=== PATIENT | male | born 1940 | race Caucasian/White ===

== ENCOUNTER 2017-04-08 11:42 | Inpatient (IN) | payer OTHER ==
[~2017-04-08] VITALS: Ht 172.7 cm; Wt 100.8 kg
[~2017-04-08 11:42] MED LIST: ADVAIR HFA120 INHALA IH; AMBIEN10 M1 PO; AMBIEN5 M1 PO; ASPIR 8181 M1 PO; ASPIRIN81 M1 PO; ATIVAN1 M1 PO; ATIVAN1 MG PO; Advair HFA 115/21 IH; Ativan PO; BAYER ASPIRIN325 M1 PO; Benadryl PO; Combivent IH; DOXAZOSIN MESYLA1 MG PO; EMS NITROSTAT0.4 M1 SL; Ecotrin PO; HYDROCHLOROTHIA25 MG; HYDROCHLOROTHIA25 MG PO; Hydrodiuril,Oretic,E PO; LIPITOR40 MG PO; LOPRESSOR25 MG PO; Lipitor PO; Lopressor PO; NITROSTAT,NITR0.4 M1 SL; NITROSTAT0.4 MG SL; NIX 5% CREAM60 GM TP; NORVASC10 MG; NORVASC5 M1 PO; NORVASC5 MG PO; Norvasc PO; PLAVIX75 MG PO; PRAVASTATIN SOD40 MG; PRINIVIL40 MG PO; PROZAC; PROzac PO; Plavix PO; Tylenol Regular Stre PO; ZESTRIL,PRINIVI40 MG; ZESTRIL40 MG PO; Zestril,Prinivil PO; Zithromax PO; predniSONE PO
[2017-04-08 12:25] LABS: BASOPHIL COUNT 0.1 K/uL (0-0.1); EOSINOPHIL (%) 2.2 % (0-5); EOSINOPHIL COUNT 0.2 K/uL (0-0.3); HEMATOCRIT 49.3 % (38.0-50.0); IMMATURE GRANULOCYTE (%) 0.3 % (0.0-0.7); INSTRUMENT ABS NEUTROPHIL CT 4.7 K/uL; LYMPHOCYTE COUNT 1.6 K/uL (1.0-2.8); MCH 30.2 PG (29.0-34.0); MCHC 35.3 G/DL (30.0-36.0); MCV 85.6 FL (86-99); MONOCYTE (%) 7.3 % (3-12); MONOCYTE COUNT 0.5 K/uL (0-0.8); NEUTROPHIL (%) 66.8 % (45-76); NEUTROPHIL COUNT 4.7 K/uL (1.8-6.4); PLATELET COUNT 123 K/uL (156-360); RBC DIS.WIDTH-CV 12.6 % (11.8-14.6); RED BLOOD COUNT 5.76 M/uL (4.00-5.50)
[2017-04-08 12:31] LABS: INTER. NORMALIZED RATIO 1.1; PROTHROMBIN TIME 12.4 SEC (10.2-12.9)
[2017-04-08 12:34] LABS: CHLORIDE 106 mEq/L (99-109); POTASSIUM 3.9 mEq/L (3.7-5.4); PTT 33.9 SEC (25-37); SODIUM 141 mEq/L (136-147)
[2017-04-08 12:36] LABS: GLUCOSE 140 mg/dL (70-99)
[2017-04-08 12:38] LABS: ANION GAP 13 MEQ/L (2-14)
[2017-04-08 12:40] LABS: GFR ESTIMATE (CALCULATED) 52 mL/min/
[2017-04-08 12:41] LABS: UREA NITROGEN (BUN) 23 mg/dL (9-23)
[2017-04-08 12:48] LABS: TROP-I INTERPRETATION NEGATIVE; TROPONIN-I 0.03 ng/mL (0.0-0.30)
[2017-04-08] MEDS ORDERED: TRAMADOL HCL50 MG PO (14:43)
[2017-04-08] MEDS ORDERED: VALSARTAN-HCTZ1 EAC3 PO (14:43)
[2017-04-08] MEDS ORDERED: PANTOPRAZOLE SO40 MG PO (14:43)
[2017-04-08] MEDS ORDERED: VENTOLIN HFA18 GM IH (14:44)
[2017-04-08 15:57] VITALS: BP 110/81
[2017-04-08 19:08] LABS: TROP-I INTERPRETATION NEGATIVE; TROPONIN-I 0.04 ng/mL (0.0-0.30)
[2017-04-08 19:28] VITALS: BP 124/76
[2017-04-09 00:10] VITALS: BP 118/69
[2017-04-09 00:49] LABS: TROP-I INTERPRETATION NEGATIVE; TROPONIN-I 0.03 ng/mL (0.0-0.30)
[2017-04-09 03:46] VITALS: BP 115/73
[2017-04-09 07:50] VITALS: BP 125/71
[2017-04-09 10:04] LABS: ANION GAP 11 MEQ/L (2-14); CHLORIDE 105 MEQ/L (99-109); GFR ESTIMATE (CALCULATED) 39 mL/min/; GLUCOSE 140 mg/dL (70-99); POTASSIUM 4.4 MEQ/L (3.7-5.4); SAMPLE HEMOLYSIS CHECK 0; SAMPLE ICTERIC CHECK 0; SAMPLE LIPEMIA CHECK 0; SODIUM 142 MEQ/L (136-147); UREA NITROGEN (BUN) 28 mg/dL (9-23)
[2017-04-09 11:00] VITALS: BP 129/85
[2017-04-09 11:56] LABS: HEMATOCRIT 46.5 % (38.0-50.0); MCV 88.4 FL (86-99); MEAN PLAT.VOLUME 10.9 uM^3 (9.0-12.4); PLATELET COUNT 115 K/uL (156-360); RBC DIS.WIDTH-CV 13.2 % (11.8-14.6); RBC DIS.WIDTH-SD 42.6 % (39-53); RED BLOOD COUNT 5.26 M/uL (4.00-5.50); WHITE BLOOD COUNT 6.7 K/uL (4.1-10.2)
[2017-04-09] MEDS ORDERED: ZESTRIL40 MG PO (12:20)
[2017-04-09 16:12] LABS: ANION GAP 12 MEQ/L (2-14); CHLORIDE 104 MEQ/L (99-109); POTASSIUM 3.7 MEQ/L (3.7-5.4); SAMPLE HEMOLYSIS CHECK 0; SAMPLE ICTERIC CHECK 0; SAMPLE LIPEMIA CHECK 0; SODIUM 141 MEQ/L (136-147)
[2017-04-09 16:17] LABS: GFR ESTIMATE (CALCULATED) 42 mL/min/; GLUCOSE 135 mg/dL (70-99); UREA NITROGEN (BUN) 27 mg/dL (9-23)
[2017-04-09 20:00] VITALS: BP 164/96
[2017-04-10] VITALS (9 sets, daily range): BP systolic 144–206; BP diastolic 80–110
[2017-04-10 06:55] LABS: ANION GAP 12 MEQ/L (2-14); CHLORIDE 105 MEQ/L (99-109); GFR ESTIMATE (CALCULATED) 42 mL/min/; GLUCOSE 140 mg/dL (70-99); POTASSIUM 3.8 MEQ/L (3.7-5.4); SAMPLE HEMOLYSIS CHECK 0; SAMPLE ICTERIC CHECK 0; SAMPLE LIPEMIA CHECK 0; SODIUM 140 MEQ/L (136-147); UREA NITROGEN (BUN) 27 mg/dL (9-23)
[2017-04-10 14:03] LABS: GLOBULINS 2.4 G/DL (2.3-3.5)
[2017-04-10 18:31] LABS: ADD MIUA? YES; BILIRUBIN NEGATIVE; BLOOD NEGATIVE; COLOR YELLOW ((YELLOW)); GLUCOSE (STRIP) NEGATIVE; KETONES NEGATIVE; LEUKOCYTES NEGATIVE; NITRITE NEGATIVE; PROTEIN (STRIP) 100; UROBILINOGEN 0.2 MG/DL (0.2-1.0)
[2017-04-10 18:34] LABS: BACTERIA NONE SEEN /HPF; EPITHELIAL CELLS NONE SEEN /HPF; MUCUS TRACE /LPF; RED BLOOD CELLS 0-5 /HPF (0-5); WHITE BLOOD CELLS 0-5 /HPF (0-5)
[2017-04-10 23:05] LABS: EOSINOPHIL COUNT 0.1 K/uL (0-0.3); HEMATOCRIT 44.9 % (38.0-50.0); IMMATURE GRANULOCYTE (%) 0.4 % (0.0-0.7); INSTRUMENT ABS NEUTROPHIL CT 4.5 K/uL; LYMPHOCYTE COUNT 1.6 K/uL (1.0-2.8); MCH 29.8 PG (29.0-34.0); MCHC 34.7 G/DL (30.0-36.0); MCV 85.7 FL (86-99); MEAN PLAT.VOLUME 10.2 uM^3 (9.0-12.4); MONOCYTE (%) 7.3 % (3-12); MONOCYTE COUNT 0.5 K/uL (0-0.8); NEUTROPHIL (%) 66.9 % (45-76); NEUTROPHIL COUNT 4.5 K/uL (1.8-6.4); PLATELET COUNT 112 K/uL (156-360); RBC DIS.WIDTH-CV 12.9 % (11.8-14.6); RBC DIS.WIDTH-SD 40.2 % (39-53); RED BLOOD COUNT 5.24 M/uL (4.00-5.50); WHITE BLOOD COUNT 6.7 K/uL (4.1-10.2)
[2017-04-10 23:13] LABS: CHLORIDE 109 mEq/L (99-109); POTASSIUM 3.7 mEq/L (3.7-5.4); SODIUM 140 mEq/L (136-147)
[2017-04-10 23:15] LABS: GLUCOSE 139 mg/dL (70-99)
[2017-04-10 23:16] LABS: ANION GAP 11 MEQ/L (2-14)
[2017-04-10 23:19] LABS: GFR ESTIMATE (CALCULATED) 48 mL/min/
[2017-04-10 23:20] LABS: UREA NITROGEN (BUN) 24 mg/dL (9-23)
[2017-04-10 23:27] LABS: TROP-I INTERPRETATION NEGATIVE; TROPONIN-I 0.03 ng/mL (0.0-0.30)
[2017-04-11] VITALS (8 sets, daily range): BP systolic 137–178; BP diastolic 72–104
[2017-04-11 06:56] LABS: HEMATOCRIT 43.1 % (38.0-50.0); MCH 29.7 PG (29.0-34.0); MCHC 34.6 G/DL (30.0-36.0); MCV 85.9 FL (86-99); MEAN PLAT.VOLUME 9.9 uM^3 (9.0-12.4); PLATELET COUNT 113 K/uL (156-360); RBC DIS.WIDTH-CV 13.2 % (11.8-14.6); RBC DIS.WIDTH-SD 40.7 % (39-53); RED BLOOD COUNT 5.02 M/uL (4.00-5.50); WHITE BLOOD COUNT 6.3 K/uL (4.1-10.2)
[2017-04-11 08:09] LABS: ANION GAP 10 MEQ/L (2-14); CHLORIDE 105 MEQ/L (99-109); GFR ESTIMATE (CALCULATED) 42 mL/min/; GLUCOSE 138 mg/dL (70-99); POTASSIUM 3.6 MEQ/L (3.7-5.4); SAMPLE HEMOLYSIS CHECK 0; SAMPLE ICTERIC CHECK 0; SAMPLE LIPEMIA CHECK 0; SODIUM 139 MEQ/L (136-147); UREA NITROGEN (BUN) 26 mg/dL (9-23)
[2017-04-12 03:53] VITALS: BP 154/78
[2017-04-12 06:37] LABS: ANION GAP 10 MEQ/L (2-14); CHLORIDE 105 MEQ/L (99-109); GFR ESTIMATE (CALCULATED) 42 mL/min/; GLUCOSE 126 mg/dL (70-99); SODIUM 140 MEQ/L (136-147); UREA NITROGEN (BUN) 25 mg/dL (9-23)
[2017-04-12 08:27] VITALS: BP 181/97
[2017-04-12 11:42] VITALS: BP 183/97
[2017-04-12 15:58] VITALS: BP 155/91
[2017-04-12 19:31] VITALS: BP 142/82
[2017-04-13] VITALS (7 sets, daily range): BP systolic 128–165; BP diastolic 76–97
[2017-04-13 04:30] LABS: UR CREATININE CONCENTRATION 151.6 MG/DL
[2017-04-13 05:45] LABS: ANION GAP 9 MEQ/L (2-14); CHLORIDE 105 MEQ/L (99-109); GFR ESTIMATE (CALCULATED) 45 mL/min/; GLUCOSE 140 mg/dL (70-99); MAGNESIUM 2.1 mg/dl (1.3-2.7); SAMPLE HEMOLYSIS CHECK 0; SAMPLE ICTERIC CHECK 0; SAMPLE LIPEMIA CHECK 0; SODIUM 138 MEQ/L (136-147); UREA NITROGEN (BUN) 26 mg/dL (9-23)
[2017-04-13 10:11] LABS: URINE TOTAL PROTEIN 50 MG/DL (0-10)
[2017-04-13 10:48] LABS: HEMATOCRIT 42.5 % (38.0-50.0); MCH 30.1 PG (29.0-34.0); MCHC 33.4 G/DL (30.0-36.0); PLATELET COUNT 104 K/uL (156-360); RBC DIS.WIDTH-SD 43.1 % (39-53); RED BLOOD COUNT 4.71 M/uL (4.00-5.50); WHITE BLOOD COUNT 5.7 K/uL (4.1-10.2)
[2017-04-13 10:53] LABS: MCV 90.2 FL (86-99)
[2017-04-13 13:57] LABS: ALBUMIN 3.91 G/DL (3.6-4.9); ALBUMIN PERCENT 60.1 % (49.3-67.1); ALPHA-1 GLOBULIN 0.29 G/DL (0.15-0.40); ALPHA-1 PERCENT 4.5 % (2.1-5.5); ALPHA-2 GLOBULIN 0.77 G/DL (0.45-0.85); ALPHA-2 PERCENT 11.8 % (6.2-11.6); BETA PERCENT 12.1 % (8.9-15.8); GAMMA PERCENT 11.5 % (8.6-18.6)
[2017-04-14 03:10] LABS: CHLORIDE 103 mEq/L (99-109); SODIUM 135 mEq/L (136-147)
[2017-04-14 04:04] LABS: GLUCOSE 119 mg/dL (70-99)
[2017-04-14 04:06] LABS: ANION GAP 10 MEQ/L (2-14)
[2017-04-14 04:08] LABS: GFR ESTIMATE (CALCULATED) 45 mL/min/
[2017-04-14 04:09] LABS: UREA NITROGEN (BUN) 24 mg/dL (9-23)
[2017-04-14 05:15] VITALS: BP 161/95
[2017-04-14 06:08] VITALS: BP 134/81
[2017-04-14 08:02] VITALS: BP 142/93
== END 2017-04-14 10:11 | disposition short-term general hospital (02) | DRG 287 ==
LOC: EME 11:42 → EDOF 13:02 → 5WEST 13:02 → EDOF 13:02 → ENRESERV 13:03 → 5WEST 15:17 → CANRESERV 04-13 07:09 → ENRESERV 04-13 07:09 → ENRESERVDT 04-13 09:40 → ENRESERV 04-13 09:40 → ENRESERVTM 04-13 09:40 → 5WEST 04-13 10:08 → ENRESERV 04-13 11:17 → 4EAST 04-13 13:45
PROVIDERS: Emergency Medicine; Internal Medicine; Internal Medicine Cardiovascular Disease; Internal Medicine Nephrology; Nurse Practitioner Adult Health; Physician Assistant Medical
DX: I25.110 Atherosclerotic heart disease of native coronary artery with unstable angina pectoris (principal); N17.9 Acute kidney failure, unspecified; I13.0 Hypertensive heart and chronic kidney disease with heart failure and stage 1 through stage 4 chronic kidney disease, or unspecified chronic kidney disease; G47.33 Obstructive sleep apnea (adult) (pediatric); D69.6 Thrombocytopenia, unspecified; N18.3 Chronic kidney disease, stage 3 (moderate); I16.0 Hypertensive urgency; J44.9 Chronic obstructive pulmonary disease, unspecified; I34.0 Nonrheumatic mitral (valve) insufficiency; I50.9 Heart failure, unspecified; I27.20 Pulmonary hypertension, unspecified; E66.9 Obesity, unspecified; D64.9 Anemia, unspecified; E78.5 Hyperlipidemia, unspecified; I35.0 Nonrheumatic aortic (valve) stenosis; K21.9 Gastro-esophageal reflux disease without esophagitis; N28.1 Cyst of kidney, acquired; N40.0 Benign prostatic hyperplasia without lower urinary tract symptoms; Z86.73 Personal history of transient ischemic attack (TIA), and cerebral infarction without residual deficits; I25.2 Old myocardial infarction; Z87.442 Personal history of urinary calculi; Z96.659 Presence of unspecified artificial knee joint; Z95.5 Presence of coronary angioplasty implant and graft; Z68.37 Body mass index [BMI] 37.0-37.9, adult; Z95.1 Presence of aortocoronary bypass graft; Z79.51 Long term (current) use of inhaled steroids; Z87.891 Personal history of nicotine dependence; Z80.9 Family history of malignant neoplasm, unspecified; Z82.3 Family history of stroke; Z82.49 Family history of ischemic heart disease and other diseases of the circulatory system
CPT/HCPCS: 71010; 76770; 80048; 80048 91; 81003; 82570; 83735; 83880; 84156; 84165; 84484; 85025; 85027; 85610; 85730; 86334; 86335; 93005; 93306; 94640; 94640 76; 94799; 99202; 99281; 99285; C1769; C1887; G0378; J0360; J0461; J1644; J1940; J2250; J2405; J3010; J7030; J7040; J7050; J7608